=== PATIENT | male | born 1945 | race Caucasian/White ===

== ENCOUNTER → 2020-07-30 | Day surgery (SDC) | payer OTHER ==
[~2020-07-30] MED LIST: LIPITOR10 MG PO; LISINOPRIL20 MG PO; NORCO5 PO
[2020-07-30 07:16] LABS: HEMATOCRIT 42.4 % (42.0-52.0); HEMOGLOBIN 14.5 gm/dL (14.0-18.0); MCH 32.5 pg (26.0-34.0); MCHC 34.2 g/dL (28.0-37.0); MCV 95.1 fL (80.0-100.0); MPV 7.6 fl. (7.2-11.1); RBC 4.46 mil/uL (4.50-6.00); RDW-CV 12.9 % (10.5-14.5); WBC 6.1 thou/uL (4.0-11.0)
[2020-07-30 07:23] LABS: CALCIUM 8.7 mg/dL (8.5-10.1); POTASSIUM 3.8 mmol/L (3.5-5.1)
--- NOTE | 2020-07-30 09:59 | EKG ---
[place] [address] ELECTROCARDIOGRAM REPORT Name: JUAQUIN DOUGLAS Room: [facility]#: [id number] Admission: 07/30/20 Attend Phys: Faustino Ta Discharge: Date of : 41 Date of Service: 07/30/20723 Report #: [id number] THIS REPORT FOR: //name// [facility] Test Date: 2020-07-30 Test Time: 07:24:51 Pat Name: JUAQUIN DOUGLAS Department: Room: Gender: Batch Mixer Operator: : 1945 Requested By: Faustino Mayer Order Number: [id number] Reading MD: Flex Lopez Measurements Intervals [place] Rate: 67 P: 55 [place]: 178 QRS: -17 QRSD: 96 T: 17 QT: 391 QTc: 413 Interpretive Statements Sinus rhythm Borderline left axis deviation No previous ECG available for comparison Electronically Signed On 07-30-2020 9:59:53 CDT by Flex Lopez [email or web address] <ELECTRONICALLY SIGNED> By: Flex Lopez MD, [facility] 07/30/2059 3 3 Flex Lopez MD, [facility] /EPI
--- NOTE | 2020-07-31 17:10 | OP ---
[address] [address] OPERATIVE REPORT Name: JUAQUIN DOUGLAS Room: [facility].#: [id number] Admission: 07/30/20 Attend Phys: Faustino Mayer Discharge: Date of : 41 Report #: [id number] THIS REPORT FOR: cc: Jagjit Caballero Mohammad K. DO Patterson, Jonathan D. MD ~ DOC #: [id number] Faustino Mayer MD DATE OF SURGERY: 07/30/2020 PREOPERATIVE DIAGNOSIS: Right inguinal hernia. POSTOPERATIVE DIAGNOSIS: Right inguinal hernia. OPERATION: Laparoscopic repair of right inguinal hernia with mesh. SURGEON: Faustino Mayer MD ANESTHESIA: General. ESTIMATED BLOOD LOSS: Minimal. SPECIMENS: None. DESCRIPTION OF PROCEDURE: After informed consent was obtained, the patient was brought to the operating room and placed supine. SCDs were placed and working, preoperative antibiotics were administered, general anesthesia was induced. The abdomen was prepped and draped in the usual sterile fashion. A 10-mm incision was made above the umbilicus. Fascia was incised and a trocar was placed. Pneumoperitoneum was established. A right lower quadrant and left lower quadrant 5-mm trocar was placed under direct vision. The patient was placed in the Trendelenburg position. The peritoneum at the right ASIS was scored. The peritoneum was then incised and reflected inferiorly. Cord structures were identified. This was an indirect hernia. All of the hernia sac was fully reduced. I identified the pubic bone. A large Bard 3DMax mesh was inserted. It was tacked to Bassam's ligament with 2 absorbable tacks. I then reapproximated the peritoneum with a running V-Loc suture. This covered the mesh completely. The ports were then removed under direct vision. Fascia at the umbilicus was closed with a [id number] 0 Vicryl. Skin was closed with 4-0 Monocryl. Incisions were sealed with Steri-Strips. COMPLICATIONS: [place] [address] OPERATIVE REPORT Name: SWETHA DOUGLASAL Room: [facility]#: [id number] Admission: 07/30/20 Attend Phys: Faustino Mayer Discharge: Date of : 41 Report #: [id number] DISPOSITION: The patient was taken to recovery in satisfactory condition. Faustino Mayer MD JDP/SUB <ELECTRONICALLY SIGNED> By: Faustino Mayer MD 07/31/20 1710 [id number] Mayer MD /nt
== END | disposition home or self-care (01) ==
LOC: M.SUR 06:27
PROVIDERS: ATTEND Surgery
DX: K40.90 Unilateral inguinal hernia, without obstruction or gangrene, not specified as recurrent (principal); R10.9 Unspecified abdominal pain; I10 Essential (primary) hypertension; Z98.890 Other specified postprocedural states; Z79.899 Other long term (current) drug therapy